=== PATIENT | female | born 1995 | race Caucasian/White ===

== ENCOUNTER 2018-12-09 11:14 | Inpatient (IN) | payer OTHER ==
[2018-12-09 11:58] VITALS: BMI 31.5
--- NOTE | 2018-12-09 16:10 | HP ---
COWS - Scale Resting Pulse: 1= [place] 81-100 Sweatin=Flushed/Facial Moisture Restless Observation: 1= Difficult to Sit Still Pupil Size: 1= Pupils >than Normal Bone or Joint Aches: 2= Severe Diffuse Aches Runny Nose/ Eye Tearin= Runny Nose/Eyes GI Upset > 30mins: 2= Nausea/Diarrhea Tremor Observation: 2= Slight Tremor Visible Yawning Observation: 1= 1-2x During Session Anxiety or Irritability: 2=Irritable/Anxious Goose Flesh Skin: 0=Smooth Skin COWS Score: 16 CIWA Score - Admission Criteria [facility]ASAS Guidelines: Admission for Medically Managed Detox: Requires at least one of the followin. CIWA greater than 12 2. Seizures within the past 24 hours 3. Delirium tremens within the past 24 hours 4. Hallucinations within the past 24 hours 5. Acute intervention needed for co occurring medical disorder 6. Acute intervention needed for co occurring psychiatric disorder 7. Severe withdrawal that cannot be handled at a lower level of care (continued vomiting, continued diarrhea, abnormal vital signs) requiring intravenous medication and/or fluids 8. Admission ROS [facility] - [facility] Chief Complaint: I am here to detox and to go to a residential facility Allergies/Adverse Reactions: Allergies Allergy/AdvReac Type Severity Reaction Status Date / Time No Known Allergies Allergy Verified 12/09/18 11:50 History of Present Illness: 23 year old female with no prior detox treatments presents for detox because she wants to be clean and get back her life. Patient denies h/o overdose. Exam Limitations: No Limitations - Ebola screening Have you traveled outside of the country in the last 21 days: No (N) Have you had contact with anyone from an Ebola affected area: No Have you been sick,other than usual withdrawal symptoms: No Do you have a fever: No - Review of Systems Constitutional: Chills EENT: reports: Nose Congestion Respiratory: reports: No Symptoms reported Cardiac: reports: No Symptoms Reported GI: reports: Diarrhea, Poor Fluid Intake, Abdominal cramping : reports: No Symptoms Reported Musculoskeletal: reports: Joint Pain, Muscle Pain Integumentary: reports: No Symptoms Reported Neuro: reports: Headache, Tremors Endocrine: reports: No Symptoms Reported Hematology: reports: Anemia Psychiatric: reports: Anxious, Depressed Other Systems: Reviewed and Negative Patient History - Patient Medical History Hx Anemia: Yes Hx Asthma: No Hx Chronic Obstructive Pulmonary Disease (COPD): No Hx Cancer: No Hx Cardiac Disorders: No Hx Congestive Heart Failure: No Hx Hypertension: No Hx Hypercholesterolemia: No Hx Pacemaker: No HX Cerebrovascular Accident: No Hx Seizures: No Hx Dementia: No Hx Diabetes: No Hx Gastrointestinal Disorders: No Hx Liver Disease: No Hx Genitourinary Disorders: No Hx Sexually Transmitted Disorders: No Hx Renal Disease (ESRD): No Hx Thyroid Disease: No Hx Human Immunodeficiency Virus (HIV): No Hx Hepatitis C: No Hx Depression: Yes Hx Suicide Attempt: No Hx Bipolar Disorder: No Hx Schizophrenia: No - Patient Surgical History Past Surgical History: No - PPD History Previous Implant?: Yes Documented Results: Negative w/o proof Implanted On Prior [facility] Admission?: No PPD to be Administered?: No - Reproductive History Patient is a Female of Child Bearing Age (11 -55 yrs old): Yes Last Menstrual Period: 11/17/18 LMP comment: Normal flow Patient : No - Smoking Cessation Smoking history: Never smoked Have you smoked in the past 12 months: No - Substance & Tx. History Hx Alcohol Use: No Hx Substance Use: Yes Substance Use Type: Opiates Hx Substance Use Treatment: No - Substances abused Oxycontin Substance route: Inhalation Frequency: Daily Amount used: 8-10 30mg tabs Age of first use: 20 Date of last use: 12/09/18 Family Disease History - Family Disease History Family History: Unremarkable Admission Physical Exam BHS - Vital Signs Vital Signs: Vital Signs - 24 hr 12/09/18 11:51 Temperature 97.6 F Pulse Rate 81 Respiratory 18 Rate Blood Pressure 114/68 - Physical General Appearance: Yes: No Apparent Distress, Nourished HEENTM: Yes: EOMI, Hearing grossly Normal, Normocephalic, KAYLA, Nasal Congestion Respiratory: Yes: Chest Non-Tender, Lungs Clear, Normal Breath Sounds Neck: Yes: No masses,lesions,Nodules, Supple Breast: Yes: Breast Exam Deferred Cardiology: Yes: Regular Rhythm, Regular Rate, S1, S2 Abdominal: Yes: Normal Bowel Sounds, Non Tender, Soft Genitourinary: Yes: Within Normal Limits Back: Yes: Normal Inspection Musculoskeletal: Yes: full range of Motion, Gait Steady, Pelvis Stable, Muscle Pain, Muscle weakness Extremities: Yes: Normal Inspection Neurological: Yes: community health consultant II-XII NML intact, Fully Oriented, Alert, Normal Mood/ Affect, Normal Response Integumentary: Yes: Normal Color Lymphatic: Yes: Within Normal Limits - Diagnostic (1) Opiate withdrawal Current Visit: Yes Status: Acute Cleared for Admission [facility] - Detox or Rehab [facility] Level of Care: Medically Managed Detox Regimen/Protocol: Methadone Claeared for Rehab Admission: No Breathalyzer - Breathalyzer Breathalyzer: 0 Urine Drug Screen - Test Device Lot number: [id number] Expiration date: 09/01/20 - Control Is test valid?: Yes - Results Drug screen NEGATIVE: No Urine drug screen results: THC-Marijuana, FEN-Fentanyl Inpatient Rehab Admission - Rehab Decision to Admit Inpatient rehab admission?: No
[2018-12-09] MEDS ORDERED: cloNIDine HCL 0.1 MG TABLET PO PRN (16:21)
[2018-12-09] MEDS ORDERED: ACETAMINOPHEN 325 MG TABLET (FP) PO PRN ×2 (16:21)
[2018-12-09] MEDS ORDERED: NALOXONE HCL 0.4 MG/ML VIAL IM PRN (16:21)
[2018-12-09] MEDS ORDERED: MENTHOL/PHENOL 1 EACH UD MM PRN (16:21)
[2018-12-09] MEDS ORDERED: IBUPROFEN 400 MG TABLET (FP) PO PRN (16:21)
[2018-12-09] MEDS ORDERED: METHADONE HCL 10 MG TABLET (FOR DETOX USE ONLY) PO ONE (16:21)
[2018-12-09] MEDS ORDERED: MAGNESIUM HYDROX 2400MG/30ML ORAL SUSPENSION 30 ML CUP PO PRN (16:21)
[2018-12-09] MEDS ORDERED: MELATONIN 5 MG TABLETS PO PRN (16:21)
[2018-12-09] MEDS ORDERED: MAGNESIUM CITRATE 300 ML BOTTLE PO PRN (16:21)
[2018-12-09] MEDS ORDERED: BISMUTH SUBSALICYLATE 524 MG/30 ML UD PO PRN (16:21)
[2018-12-09] MEDS ORDERED: METHOCARBAMOL 500 MG TABLET PO PRN (16:21)
[2018-12-09] MEDS ORDERED: MAG HYDROX/AL HYDROX/SIMETH 30 ML UNIT-DOSE CUP PO PRN (16:21)
[2018-12-09] MEDS: THIAMINE HCL 100 MG TABLET (FP) PO SCH (23:14)
[2018-12-10] MEDS ORDERED: METHADONE HCL 5 MG TABLET (FOR DETOX USE ONLY) PO ONE (10:00)
[2018-12-10 10:19] LABS: HEMATOCRIT 44.9 % (32.4-45.2); HEMOGLOBIN 14.7 GM/dL (10.7-15.3); MCH 29.6 pg (25.7-33.7); MCHC 32.8 g/dl (32.0-36.0); MEAN CELL VOLUME 90.4 fl (80-96); MEAN PLT VOLUME 10.1 fl (7.5-11.1); PLATELET COUNT 179 K/MM3 (134-434); RBC 4.97 M/mm3 (3.60-5.2); RDW 16.6 % (11.6-15.6)
[2018-12-10] MEDS: PRENATAL VITAMINS W/ FOLIC ACID TABLET (FP) PO SCH (10:27)
[2018-12-10 10:28] LABS: ALBUMIN 3.5 g/dl (3.4-5.0); BILIRUBIN,TOTAL 0.2 mg/dL (0.2-1); BLOOD UREA NITROGEN 12.7 mg/dL (7-18); CALCIUM 8.9 mg/dL (8.5-10.1); CREATININE 1.2 mg/dL (0.55-1.3); POTASSIUM 4.1 mmol/L (3.5-5.1); TOT PROT 6.5 g/dl (6.4-8.2)
--- NOTE | 2018-12-10 17:15 | EKG ---
Test Reason : Blood Pressure : / mmHG Vent. Rate : 070 BPM Atrial Rate : 070 BPM P-R Int : 152 ms QRS Dur : 074 ms QT Int : 372 ms P-R-T Axes : 067 072 054 degrees QTc Int : 401 ms NORMAL SINUS RHYTHM NORMAL ECG NO PREVIOUS ECGS AVAILABLE Confirmed by SAMI MANN MD ([id number]) on 12/10/2018 5:15:21 PM Referred By: MARCELINA PILLAI Confirmed By:SAMI MANN MD
--- NOTE | 2018-12-10 17:26 | PN ---
BHS COWS - Scale Resting Pulse: 1= [place] 81-100 Sweatin= Chills/Flushing Restless Observation: 3= Extraneous Movement Pupil Size: 0= Normal to Room Light Bone or Joint Aches: 2= Severe Diffuse Aches Runny Nose/ Eye Tearin= Runny Nose/Eyes GI Upset > 30mins: 2= Nausea/Diarrhea Tremor Observation of Outstretched Hands: 2= Slight Tremor Visible Yawning Observation: 0= None Anxiety or Irritability: 2=Irritable/Anxious Goose Flesh Skin: 0=Smooth Skin COWS Score: 15 BHS Progress Note (SOAP) Subjective: Feels ok Objective: 12/10/18 17:24 Last Vital Signs Temp Pulse Resp BP Pulse Ox 98.4 F 92 H 18 109/61 12/10/18 17:00 12/10/18 17:00 12/10/18 17:00 12/10/18 17:00 Laboratory Tests 12/10/18 12/10/18 12/10/18 08:00 08:00 08:00 WBC 6.0 RBC 4.97 Hgb 14.7 Hct 44.9 MCV 90.4 MCH 29.6 MCHC 32.8 RDW 16.6 H Plt Count 179 MPV 10.1 Sodium 142 Potassium 4.1 Chloride 109 H Carbon Dioxide 26 Anion Gap 7 L BUN 12.7 Creatinine 1.2 Est GFR (CKD-EPI)AfAm 74.29 Est GFR (CKD-EPI)NonAf 64.10 Random Glucose 139 H Calcium 8.9 Total Bilirubin 0.2 AST 50 H ALT 64 H Alkaline Phosphatase 116 Total Protein 6.5 Albumin 3.5 RPR Titer Nonreactive Labs reviewed: glucose 139, AST/ALT mildly elevated Assessment: 12/10/18 17:25 Withdrawal sxs Noted with hyperglycemia Plan: Continue detox Encouraged PO water intake Hyperglycemia: most likely r/t withdrawal, repeat fasting glucose, send A1c
[2018-12-10] MEDS: THIAMINE HCL 100 MG TABLET (FP) PO SCH (22:33)
[2018-12-11] MEDS ORDERED: METHADONE HCL 10 MG TABLET (FOR DETOX USE ONLY) PO ONE (10:00)
[2018-12-11] MEDS: PRENATAL VITAMINS W/ FOLIC ACID TABLET (FP) PO SCH (10:13)
[2018-12-11] MEDS ORDERED: CYCLOBENZAPRINE HCL 10 MG TABLET (FP) PO PRN (12:34)
--- NOTE | 2018-12-11 12:35 | PN ---
BHS COWS - Scale Resting Pulse: 0= [place] 80 or Below Sweatin= Chills/Flushing Restless Observation: 1= Difficult to Sit Still Pupil Size: 0= Normal to Room Light Bone or Joint Aches: 1= Mild Discomfort Runny Nose/ Eye Tearin= None GI Upset > 30mins: 0= None Tremor Observation of Outstretched Hands: 1= Tremor [place], Not Seen Yawning Observation: 0= None Anxiety or Irritability: 1=Feels Anxious/Irritable Goose Flesh Skin: 0=Smooth Skin COWS Score: 5 BHS Progress Note (SOAP) Subjective: restless legs anxiety Objective: 12/11/18 12:35 Vital Signs Temperature 97.9 F 12/11/18 09:45 Pulse Rate 86 12/11/18 09:45 Respiratory Rate 18 12/11/18 09:45 Blood Pressure 94/55 L 12/11/18 09:45 O2 Sat by Pulse Oximetry (%) aaox3 ambulating no acute distress Assessment: 12/11/18 12:35 mild withdrawal sx Plan: continue detox flexiril 10mg prn d/c in am
[2018-12-11] MEDS ORDERED: MELATONIN 5 MG TABLETS PO PRN (12:36)
[2018-12-11] MEDS: THIAMINE HCL 100 MG TABLET (FP) PO SCH (21:52)
[2018-12-12] MEDS ORDERED: METHADONE HCL 5 MG TABLET (FOR DETOX USE ONLY) PO ONE (06:00)
--- NOTE | 2018-12-12 09:30 | DS ---
[facility] Detox Discharge Summary Admission Date: 12/09/18 Discharge Date: 12/12/18 - History Present History: Opioid Dependence - Physical Exam Results Vital Signs: Vital Signs Temperature 99.1 F 12/12/18 07:04 Pulse Rate 84 12/12/18 07:04 Respiratory Rate 18 12/12/18 07:04 Blood Pressure 111/69 12/12/18 07:04 O2 Sat by Pulse Oximetry (%) Pertinent Admission Physical Exam Findings: pt arrived in withdrawals Laboratory Tests 12/10/18 12/10/18 12/10/18 08:00 08:00 08:00 WBC 6.0 RBC 4.97 Hgb 14.7 Hct 44.9 MCV 90.4 MCH 29.6 MCHC 32.8 RDW 16.6 H Plt Count 179 MPV 10.1 Sodium 142 Potassium 4.1 Chloride 109 H Carbon Dioxide 26 Anion Gap 7 L BUN 12.7 Creatinine 1.2 Est GFR (CKD-EPI)AfAm 74.29 Est GFR (CKD-EPI)NonAf 64.10 Random Glucose 139 H Fasting Glucose Hemoglobin A1c % Calcium 8.9 Total Bilirubin 0.2 AST 50 H ALT 64 H Alkaline Phosphatase 116 Total Protein 6.5 Albumin 3.5 RPR Titer Nonreactive 12/11/18 12/11/18 09:00 09:00 WBC RBC Hgb Hct MCV MCH MCHC RDW Plt Count MPV Sodium Potassium Chloride Carbon Dioxide Anion Gap BUN Creatinine Est GFR (CKD-EPI)AfAm Est GFR (CKD-EPI)NonAf Random Glucose Fasting Glucose 91 Hemoglobin A1c % 5.4 Calcium Total Bilirubin AST ALT Alkaline Phosphatase Total Protein Albumin RPR Titer today pt is aaox3 ambulating no acute distress no s/s of withdrawals - Treatment Hospital Course: Detox Protocol Followed, Detoxed Safely, Responded well, Discharged Condition Good, Rehab Referral Accepted Patient has Accepted a Rehab Referral to: pt declined rehab; referral provided - Medication Discharge Medications: Ambulatory Orders NK [No Known Home Medication] 12/09/18 - Diagnosis (1) Opiate withdrawal Current Visit: Yes Status: Chronic - AMA Did Patient Leave Against Medical Advice: No
[2018-12-12 09:52] VITALS: BP 110/60; PULSE 86; TEMP 98.8
== END 2018-12-12 09:24 | disposition home or self-care (01) | DRG 773 ==
LOC: YASAS 11:14 → Y6N 17:05
PROVIDERS: ADMIT Surgery; ATTEND Surgery
PROC: HZ2ZZZZ Detoxification Services for Substance Abuse Treatment (ICD-10-PCS; principal; 2018-12-09)
DX: F11.23 Opioid dependence with withdrawal (principal); R73.9 Hyperglycemia, unspecified; R94.5 Abnormal results of liver function studies
CPT/HCPCS: 36415; 80053; 82947; 83036; 85027; 86480; 86593; 93005; 93010

== ENCOUNTER 2020-06-15 19:34 | Inpatient (IN) | payer OTHER ==
[2020-06-15 21:08] VITALS: BMI 34.0
[2020-06-15] MEDS ORDERED: MAG HYDROX/AL HYDROX/SIMETH 30 ML UNIT-DOSE CUP PO PRN (21:30)
[2020-06-15] MEDS ORDERED: MAGNESIUM HYDROX 2400MG/30ML ORAL SUSPENSION 30 ML CUP PO PRN (21:30)
[2020-06-15] MEDS ORDERED: IBUPROFEN 400 MG TABLET (FP) PO PRN (21:30)
[2020-06-15] MEDS ORDERED: ONDANSETRON *ODT* 4 MG TABLET SL PRN (21:30)
[2020-06-15] MEDS ORDERED: METHADONE HCL 10 MG TABLET (FOR DETOX USE ONLY) PO ONE (21:30)
[2020-06-15] MEDS ORDERED: BISMUTH SUBSALICYLATE 524 MG/30 ML UD PO PRN (21:30)
[2020-06-15] MEDS ORDERED: ACETAMINOPHEN 325 MG TABLET (FP) PO PRN ×2 (21:30)
[2020-06-15] MEDS ORDERED: cloNIDine HCL 0.1 MG TABLET PO PRN (21:30)
[2020-06-15] MEDS ORDERED: MENTHOL/PHENOL 1 EACH UD MM PRN (21:30)
[2020-06-15] MEDS ORDERED: MAGNESIUM CITRATE 300 ML BOTTLE PO PRN (21:30)
[2020-06-16] MEDS: THIAMINE HCL 100 MG TABLET (FP) PO SCH ×2 (01:12→22:29)
[2020-06-16] MEDS: MELATONIN 5 MG TABLETS PO SCH ×2 (01:12→22:29)
[2020-06-16] MEDS ORDERED: METHADONE HCL 10 MG TABLET (FOR DETOX USE ONLY) ONE (09:40)
[2020-06-16] MEDS ORDERED: METHADONE HCL 5 MG TABLET (FOR DETOX USE ONLY) ONE (09:40)
[2020-06-16] MEDS ORDERED: METHADONE (DETOX) 20 MG, METHADONE (DETOX) 5 MG PO ONE (10:00)
[2020-06-16] MEDS: PRENATAL VITAMINS W/ FOLIC ACID TABLET (FP) PO SCH (10:33)
[2020-06-16 12:54] LABS: HEMATOCRIT 32.8 % (32.4-45.2); HEMOGLOBIN 10.9 GM/dL (10.7-15.3); MCH 27.7 pg (25.7-33.7); MCHC 33.3 g/dl (32.0-36.0); MEAN CELL VOLUME 83.2 fl (80-96); MEAN PLT VOLUME 8.4 fl (7.5-11.1); PLATELET COUNT 469 K/MM3 (134-434); RBC 3.94 M/mm3 (3.60-5.2); RDW 13.1 % (11.6-15.6); WHITE BLOOD COUNT 6.7 K/mm3 (4.0-10.0)
[2020-06-16 13:01] LABS: POTASSIUM 4.6 mmol/L (3.5-5.1)
[2020-06-16 13:11] LABS: ALBUMIN 2.9 g/dl (3.4-5.0); BLOOD UREA NITROGEN 12.2 mg/dL (7-18); CALCIUM 9.3 mg/dL (8.5-10.1)
[2020-06-16 13:14] LABS: CREATININE 0.7 mg/dL (0.55-1.3)
[2020-06-16 13:16] LABS: BILIRUBIN,TOTAL 0.8 mg/dL (0.2-1); TOT PROT 6.6 g/dl (6.4-8.2)
[2020-06-16] MEDS: METHOCARBAMOL 500 MG TABLET PO PRN (22:29)
[2020-06-17] MEDS ORDERED: METHADONE HCL 10 MG TABLET (FOR DETOX USE ONLY) PO ONE (10:00)
[2020-06-17] MEDS: METHOCARBAMOL 500 MG TABLET PO PRN ×2 (10:27→22:05)
[2020-06-17] MEDS: PRENATAL VITAMINS W/ FOLIC ACID TABLET (FP) PO SCH (10:27)
[2020-06-17] MEDS ORDERED: IBUPROFEN 400 MG TABLET (FP) PO PRN (11:42)
[2020-06-17] MEDS: MELATONIN 5 MG TABLETS PO SCH (22:05)
[2020-06-17] MEDS: THIAMINE HCL 100 MG TABLET (FP) PO SCH (22:05)
[2020-06-18] MEDS ORDERED: METHADONE HCL 10 MG TABLET (FOR DETOX USE ONLY) ONE (08:46)
[2020-06-18] MEDS ORDERED: METHADONE HCL 5 MG TABLET (FOR DETOX USE ONLY) ONE (08:46)
[2020-06-18] MEDS: PRENATAL VITAMINS W/ FOLIC ACID TABLET (FP) PO SCH (09:04)
[2020-06-18] MEDS: METHOCARBAMOL 500 MG TABLET PO PRN ×2 (09:05→17:50)
[2020-06-18] MEDS ORDERED: METHADONE (DETOX) 10 MG, METHADONE (DETOX) 5 MG PO ONE (10:00)
[2020-06-18] MEDS: THIAMINE HCL 100 MG TABLET (FP) PO SCH (22:11)
[2020-06-18] MEDS: MELATONIN 5 MG TABLETS PO SCH (22:11)
[2020-06-19 09:45] VITALS: BP 98/69; PULSE 77; TEMP 97.8
[2020-06-19] MEDS: PRENATAL VITAMINS W/ FOLIC ACID TABLET (FP) PO SCH (09:51)
[2020-06-19] MEDS ORDERED: METHADONE HCL 10 MG TABLET (FOR DETOX USE ONLY) PO ONE (10:00)
[2020-06-20] MEDS ORDERED: METHADONE HCL 5 MG TABLET (FOR DETOX USE ONLY) PO ONE (06:00)
== END 2020-06-19 11:22 | disposition home or self-care (01) | DRG 773 ==
LOC: YASAS 19:34 → Y3N 21:42
PROVIDERS: ADMIT Allergy & Immunology; ATTEND Allergy & Immunology
PROC: HZ2ZZZZ Detoxification Services for Substance Abuse Treatment (ICD-10-PCS; principal; 2020-06-15)
DX: F11.23 Opioid dependence with withdrawal (principal); Z87.59 Personal history of other complications of pregnancy, childbirth and the puerperium
CPT/HCPCS: 36415; 80053; 81025; 85027; 85032; 86780; 93005; 93010; C9803; U0003

== ENCOUNTER 2021-05-10 01:15 | Inpatient (IN) | payer BC, OTHER ==
[2021-05-10 01:18] VITALS: BMI 38.9
[2021-05-10] MEDS ORDERED: MAGNESIUM HYDROX 2400MG/30ML ORAL SUSPENSION 30 ML CUP PO PRN (01:18)
[2021-05-10] MEDS ORDERED: P-EPHED 60MG/TRIPROLIDI 2.5MG TABLET PO PRN (01:18)
[2021-05-10] MEDS ORDERED: NALOXONE HCL 0.4 MG/ML VIAL IM PRN (01:18)
[2021-05-10] MEDS ORDERED: MENTHOL/PHENOL 1 EACH UD MM PRN (01:18)
[2021-05-10] MEDS ORDERED: MAG HYDROX/AL HYDROX/SIMETH 30 ML UNIT-DOSE CUP PO PRN (01:18)
[2021-05-10] MEDS ORDERED: ACETAMINOPHEN 325 MG TABLET (FP) PO PRN ×2 (01:18)
[2021-05-10] MEDS ORDERED: MAGNESIUM CITRATE 300 ML BOTTLE PO PRN (01:18)
[2021-05-10] MEDS ORDERED: guaiFENesin 200 MG/10 ML 10 ML UNIT-DOSE CUPS PO PRN (01:18)
[2021-05-10] MEDS ORDERED: NALOXONE (NARCAN) HCL 4 MG/0.1 ML SPRAY NS PRN (01:18)
[2021-05-10] MEDS ORDERED: DICYCLOMINE HCL 10 MG CAPSULE PO PRN (01:18)
[2021-05-10] MEDS ORDERED: ONDANSETRON *ODT* 4 MG TABLET SL PRN (01:18)
[2021-05-10] MEDS ORDERED: BISMUTH SUBSALICYLATE 524 MG/30 ML PO PRN (01:18)
[2021-05-10] MEDS ORDERED: IBUPROFEN 400 MG TABLET (FP) PO PRN (01:18)
[2021-05-10] MEDS ORDERED: methaDONE HCL 10 MG TABLET (FOR DETOX USE ONLY) PO ONE (12:25)
[2021-05-10] MEDS ORDERED: cloNIDine HCL 0.1 MG TABLET PO PRN (12:25)
[2021-05-10] MEDS: PRENATAL VITAMINS W/ FOLIC ACID TABLET (FP) PO SCH (12:43)
[2021-05-10] MEDS: MELATONIN 5 MG TABLETS PO SCH (22:24)
[2021-05-10] MEDS: METHOCARBAMOL 500 MG TABLET PO PRN (22:24)
[2021-05-10] MEDS: THIAMINE HCL 100 MG TABLET (FP) PO SCH (22:24)
[2021-05-11] MEDS ORDERED: methaDONE HCL 10 MG TABLET (FOR DETOX USE ONLY) ONE (09:03)
[2021-05-11] MEDS: hydrOXYzine PAMOATE 25 MG CAPSULE (FP) PO PRN ×2 (10:05→22:29)
[2021-05-11] MEDS: PRENATAL VITAMINS W/ FOLIC ACID TABLET (FP) PO SCH (10:05)
[2021-05-11 10:50] LABS: BLOOD UREA NITROGEN 9.5 mg/dL (7-18)
[2021-05-11 10:52] LABS: ALBUMIN 3.7 g/dl (3.4-5.0); CALCIUM 9.4 mg/dL (8.5-10.1)
[2021-05-11 10:55] LABS: CREATININE 0.7 mg/dL (0.55-1.3)
[2021-05-11 10:56] LABS: BILIRUBIN,TOTAL 0.4 mg/dL (0.2-1)
[2021-05-11 11:04] LABS: HEMATOCRIT 36.8 % (32.4-45.2); HEMOGLOBIN 12.2 GM/dL (10.7-15.3); MCH 26.8 pg (25.7-33.7); MCHC 33.2 g/dl (32.0-36.0); MEAN CELL VOLUME 80.6 fl (80-96); MEAN PLT VOLUME 9.8 fl (7.5-11.1); PLATELET COUNT 256 10^3/uL (134-434); RBC 4.56 M/mm3 (3.60-5.2); RDW 13.7 % (11.6-15.6); WHITE BLOOD COUNT 3.8 K/mm3 (4.0-10.0)
[2021-05-11] MEDS: MELATONIN 5 MG TABLETS PO SCH (22:29)
[2021-05-11] MEDS: METHOCARBAMOL 500 MG TABLET PO PRN (22:29)
[2021-05-11] MEDS: THIAMINE HCL 100 MG TABLET (FP) PO SCH (22:30)
[2021-05-12] MEDS ORDERED: methaDONE HCL 10 MG TABLET (FOR DETOX USE ONLY) PO ONE (10:00)
[2021-05-12] MEDS: PRENATAL VITAMINS W/ FOLIC ACID TABLET (FP) PO SCH (10:18)
[2021-05-12] MEDS: METHOCARBAMOL 500 MG TABLET PO PRN ×2 (17:11→23:52)
[2021-05-12] MEDS: THIAMINE HCL 100 MG TABLET (FP) PO SCH (22:04)
[2021-05-12] MEDS: traZODone HCL 100 MG TABLET (FP) PO PRN (22:04)
[2021-05-12] MEDS: MELATONIN 5 MG TABLETS PO SCH (22:06)
[2021-05-13] MEDS ORDERED: methaDONE HCL 10 MG TABLET (FOR DETOX USE ONLY) ONE (09:25)
[2021-05-13] MEDS: PRENATAL VITAMINS W/ FOLIC ACID TABLET (FP) PO SCH (10:35)
[2021-05-13] MEDS: MELATONIN 5 MG TABLETS PO SCH (22:11)
[2021-05-13] MEDS: THIAMINE HCL 100 MG TABLET (FP) PO SCH (22:11)
[2021-05-13] MEDS: traZODone HCL 100 MG TABLET (FP) PO PRN (22:11)
[2021-05-13] MEDS: METHOCARBAMOL 500 MG TABLET PO PRN (22:11)
[2021-05-14] MEDS ORDERED: methaDONE HCL 10 MG TABLET (FOR DETOX USE ONLY) PO ONE (10:00)
[2021-05-14] MEDS: PRENATAL VITAMINS W/ FOLIC ACID TABLET (FP) PO SCH (10:08)
[2021-05-14] MEDS: THIAMINE HCL 100 MG TABLET (FP) PO SCH (22:09)
[2021-05-14] MEDS: MELATONIN 5 MG TABLETS PO SCH (22:09)
[2021-05-14] MEDS: traZODone HCL 100 MG TABLET (FP) PO PRN (22:09)
[2021-05-15 06:59] VITALS: TEMP 97.8
[2021-05-15 08:53] VITALS: BP 108/69; PULSE 71
[2021-05-16 14:11] LABS: SARS-CoV-2 NAA Not Detected (Not Detected)
== END 2021-05-15 09:23 | disposition home or self-care (01) | DRG 773 ==
LOC: YASAS 01:15 → Y3N 11:39
PROVIDERS: ADMIT Allergy & Immunology; ATTEND Allergy & Immunology
PROC: HZ2ZZZZ Detoxification Services for Substance Abuse Treatment (ICD-10-PCS; principal; 2021-05-10)
DX: F11.23 Opioid dependence with withdrawal (principal); F19.24 Other psychoactive substance dependence with psychoactive substance-induced mood disorder; Z62.810 Personal history of physical and sexual abuse in childhood; Z56.0 Unemployment, unspecified
CPT/HCPCS: 36415; 80053; 81025; 85027; 86780; 93005; 93010; C9803; J0735; U0003; U0005

== ENCOUNTER 2021-06-27 11:01 | Inpatient (IN) | payer OTHER ==
[2021-06-27 11:34] VITALS: BMI 36.8
[2021-06-27] MEDS ORDERED: BISMUTH SUBSALICYLATE 524 MG/30 ML PO PRN (11:51)
[2021-06-27] MEDS ORDERED: IBUPROFEN 400 MG TABLET (FP) PO PRN (11:51)
[2021-06-27] MEDS ORDERED: MENTHOL/PHENOL 1 EACH UD MM PRN (11:51)
[2021-06-27] MEDS ORDERED: LOPERAMIDE HCL 2 MG CAPSULE PO PRN (11:51)
[2021-06-27] MEDS ORDERED: clonazePAM 0.5 MG ODT TABLETS SL PRN (11:51)
[2021-06-27] MEDS ORDERED: MAG HYDROX/AL HYDROX/SIMETH 30 ML UNIT-DOSE CUP PO PRN (11:51)
[2021-06-27] MEDS ORDERED: cloNIDine HCL 0.1 MG TABLET PO PRN (11:51)
[2021-06-27] MEDS ORDERED: ONDANSETRON *ODT* 4 MG TABLET SL PRN (11:51)
[2021-06-27] MEDS ORDERED: MAGNESIUM CITRATE 300 ML BOTTLE PO PRN (11:51)
[2021-06-27] MEDS ORDERED: MAGNESIUM HYDROX 2400MG/30ML ORAL SUSPENSION 30 ML CUP PO PRN (11:51)
[2021-06-27] MEDS ORDERED: methaDONE HCL 10 MG TABLET (FOR DETOX USE ONLY) PO ONE (11:51)
[2021-06-27] MEDS ORDERED: ACETAMINOPHEN 325 MG TABLET (FP) PO PRN ×2 (11:51)
[2021-06-27] MEDS: METHOCARBAMOL 500 MG TABLET PO PRN (18:54)
[2021-06-27] MEDS: THIAMINE HCL 100 MG TABLET (FP) PO SCH (22:31)
[2021-06-27] MEDS: MELATONIN 5 MG TABLETS PO SCH (22:31)
[2021-06-28] MEDS ORDERED: methaDONE HCL 10 MG TABLET (FOR DETOX USE ONLY) ONE (09:32)
[2021-06-28] MEDS: PRENATAL VITAMINS W/ FOLIC ACID TABLET (FP) PO SCH (10:05)
[2021-06-28] MEDS: METHOCARBAMOL 500 MG TABLET PO PRN ×2 (10:05→22:10)
[2021-06-28 11:58] LABS: BLOOD UREA NITROGEN 11.6 mg/dL (7-18); CALCIUM 9.8 mg/dL (8.5-10.1)
[2021-06-28 12:01] LABS: CREATININE 0.8 mg/dL (0.55-1.3)
[2021-06-28 12:02] LABS: HEMATOCRIT 37.7 % (32.4-45.2); HEMOGLOBIN 12.7 GM/dL (10.7-15.3); MCH 27.1 pg (25.7-33.7); MCHC 33.8 g/dl (32.0-36.0); MEAN CELL VOLUME 80.3 fl (80-96); MEAN PLT VOLUME 8.8 fl (7.5-11.1); PLATELET COUNT 298 10^3/uL (134-434); RDW 14.1 % (11.6-15.6); WHITE BLOOD COUNT 6.6 K/mm3 (4.0-10.0)
[2021-06-28 12:03] LABS: BILIRUBIN,TOTAL 0.9 mg/dL (0.2-1); TOT PROT 7.8 g/dl (6.4-8.2)
[2021-06-28] MEDS: THIAMINE HCL 100 MG TABLET (FP) PO SCH (22:10)
[2021-06-28] MEDS: MELATONIN 5 MG TABLETS PO SCH (22:10)
[2021-06-29] MEDS ORDERED: methaDONE HCL 10 MG TABLET (FOR DETOX USE ONLY) PO ONE (10:00)
[2021-06-29] MEDS: PRENATAL VITAMINS W/ FOLIC ACID TABLET (FP) PO SCH (10:30)
[2021-06-29] MEDS: METHOCARBAMOL 500 MG TABLET PO PRN ×2 (10:30→22:10)
[2021-06-29] MEDS: THIAMINE HCL 100 MG TABLET (FP) PO SCH (22:04)
[2021-06-29] MEDS: MELATONIN 5 MG TABLETS PO SCH (22:04)
[2021-06-30] MEDS ORDERED: methaDONE HCL 10 MG TABLET (FOR DETOX USE ONLY) ONE (09:15)
[2021-06-30] MEDS: PRENATAL VITAMINS W/ FOLIC ACID TABLET (FP) PO SCH (10:30)
[2021-06-30] MEDS: METHOCARBAMOL 500 MG TABLET PO PRN ×2 (10:31→22:16)
[2021-06-30] MEDS ORDERED: DICYCLOMINE HCL 10 MG CAPSULE PO ONE (14:01)
[2021-06-30] MEDS: FAMOTIDINE 20 MG TABLET PO SCH (22:10)
[2021-06-30] MEDS: THIAMINE HCL 100 MG TABLET (FP) PO SCH (22:15)
[2021-06-30] MEDS: MELATONIN 5 MG TABLETS PO SCH (22:15)
[2021-07-01] MEDS ORDERED: methaDONE HCL 10 MG TABLET (FOR DETOX USE ONLY) PO ONE (10:00)
[2021-07-01] MEDS: METHOCARBAMOL 500 MG TABLET PO PRN ×2 (10:47→22:57)
[2021-07-01] MEDS: FAMOTIDINE 20 MG TABLET PO SCH ×2 (10:47→22:57)
[2021-07-01] MEDS: PRENATAL VITAMINS W/ FOLIC ACID TABLET (FP) PO SCH (10:47)
[2021-07-01] MEDS: MELATONIN 5 MG TABLETS PO SCH (22:57)
[2021-07-01] MEDS: THIAMINE HCL 100 MG TABLET (FP) PO SCH (22:57)
[2021-07-02 07:06] VITALS: BP 91/65; PULSE 78; TEMP 97.1
[2021-07-02] MEDS: PRENATAL VITAMINS W/ FOLIC ACID TABLET (FP) PO SCH (09:19)
[2021-07-02] MEDS: FAMOTIDINE 20 MG TABLET PO SCH (09:19)
== END 2021-07-02 09:28 | disposition home or self-care (01) | DRG 773 ==
LOC: YASAS 11:01 → Y6N 13:39
PROVIDERS: ADMIT Allergy & Immunology; ATTEND Allergy & Immunology
PROC: HZ2ZZZZ Detoxification Services for Substance Abuse Treatment (ICD-10-PCS; principal; 2021-06-27)
DX: F11.23 Opioid dependence with withdrawal (principal)
CPT/HCPCS: 36415; 80053; 81025; 85027; 86780; 87811; 90853; C9803-CS; J0735; U0003; U0005

== ENCOUNTER 2021-09-20 23:53 | Inpatient (IN) | payer OTHER ==
[2021-09-21] MEDS ORDERED: DICYCLOMINE HCL 10 MG CAPSULE PO PRN (00:18)
[2021-09-21] MEDS ORDERED: MAGNESIUM CITRATE 300 ML BOTTLE PO PRN (00:18)
[2021-09-21] MEDS ORDERED: MAGNESIUM HYDROX 2400MG/30ML ORAL SUSPENSION 30 ML CUP PO PRN (00:18)
[2021-09-21] MEDS ORDERED: ACETAMINOPHEN 325 MG TABLET (FP) PO PRN ×2 (00:18)
[2021-09-21] MEDS ORDERED: BISMUTH SUBSALICYLATE 524 MG/30 ML PO PRN (00:18)
[2021-09-21] MEDS ORDERED: MAG HYDROX/AL HYDROX/SIMETH 30 ML UNIT-DOSE CUP PO PRN (00:18)
[2021-09-21] MEDS ORDERED: IBUPROFEN 600 MG TABLET (FP) PO PRN (00:18)
[2021-09-21] MEDS ORDERED: BENZOCAINE/MENTHOL (CHLORASEPTIC ) LOZENGE MM PRN (00:18)
[2021-09-21] MEDS ORDERED: LOPERAMIDE HCL 2 MG CAPSULE PO PRN (00:18)
[2021-09-21] MEDS ORDERED: methaDONE HCL 10 MG TABLET (FOR DETOX USE ONLY) PO ONE ×2 (00:18→11:00)
[2021-09-21] MEDS ORDERED: IBUPROFEN 400 MG TABLET (FP) PO PRN (00:18)
[2021-09-21] MEDS ORDERED: ONDANSETRON *ODT* 4 MG TABLET SL PRN (00:18)
[2021-09-21 00:21] VITALS: BMI 36.6
[2021-09-21] MEDS: hydrOXYzine PAMOATE 25 MG CAPSULE (FP) PO SCH ×5 (06:18→22:32)
[2021-09-21] MEDS: PRENATAL VITAMINS W/ FOLIC ACID TABLET (FP) PO SCH (10:26)
[2021-09-21] MEDS: METHOCARBAMOL 500 MG TABLET PO PRN ×2 (10:27→17:22)
[2021-09-21 10:35] LABS: ALBUMIN 3.4 g/dl (3.4-5.0); CALCIUM 9.4 mg/dL (8.5-10.1)
[2021-09-21 10:36] LABS: BLOOD UREA NITROGEN 12.1 mg/dL (7-18)
[2021-09-21 10:52] LABS: CREATININE 0.7 mg/dL (0.55-1.3)
[2021-09-21 10:53] LABS: TOT PROT 6.8 g/dl (6.4-8.2)
[2021-09-21 10:54] LABS: BILIRUBIN,TOTAL 0.5 mg/dL (0.2-1)
[2021-09-21 11:01] LABS: HEMATOCRIT 36.2 % (32.4-45.2); HEMOGLOBIN 11.9 GM/dL (10.7-15.3); MCH 26.6 pg (25.7-33.7); MEAN CELL VOLUME 80.6 fl (80-96); MEAN PLT VOLUME 9.3 fl (7.5-11.1); PLATELET COUNT 273 10^3/uL (134-434); RBC 4.49 M/mm3 (3.60-5.2); RDW 14.8 % (11.6-15.6); WHITE BLOOD COUNT 7.1 K/mm3 (4.0-10.0)
[2021-09-21] MEDS: cloNIDine HCL 0.1 MG TABLET PO PRN ×2 (17:21→22:33)
[2021-09-21] MEDS: THIAMINE HCL 100 MG TABLET (FP) PO SCH (22:32)
[2021-09-21] MEDS: MELATONIN 5 MG TABLETS PO SCH (22:32)
[2021-09-22] MEDS: hydrOXYzine PAMOATE 25 MG CAPSULE (FP) PO SCH ×5 (05:51→22:02)
[2021-09-22] MEDS ORDERED: methaDONE HCL 10 MG TABLET (FOR DETOX USE ONLY) ONE (09:42)
[2021-09-22] MEDS: PRENATAL VITAMINS W/ FOLIC ACID TABLET (FP) PO SCH (09:51)
[2021-09-22] MEDS: METHOCARBAMOL 500 MG TABLET PO PRN ×2 (09:52→22:04)
[2021-09-22] MEDS: MELATONIN 5 MG TABLETS PO SCH (22:02)
[2021-09-22] MEDS: THIAMINE HCL 100 MG TABLET (FP) PO SCH (22:02)
[2021-09-22] MEDS: cloNIDine HCL 0.1 MG TABLET PO PRN (22:02)
[2021-09-23] MEDS: hydrOXYzine PAMOATE 25 MG CAPSULE (FP) PO SCH ×5 (05:49→22:23)
[2021-09-23] MEDS: METHOCARBAMOL 500 MG TABLET PO PRN (09:48)
[2021-09-23] MEDS: PRENATAL VITAMINS W/ FOLIC ACID TABLET (FP) PO SCH (09:49)
[2021-09-23] MEDS ORDERED: methaDONE HCL 10 MG TABLET (FOR DETOX USE ONLY) PO ONE (10:00)
[2021-09-23] MEDS: cloNIDine HCL 0.1 MG TABLET PO PRN (17:55)
[2021-09-23] MEDS: MELATONIN 5 MG TABLETS PO SCH (22:23)
[2021-09-23] MEDS: THIAMINE HCL 100 MG TABLET (FP) PO SCH (22:23)
[2021-09-24] MEDS: hydrOXYzine PAMOATE 25 MG CAPSULE (FP) PO SCH ×5 (05:40→22:28)
[2021-09-24] MEDS ORDERED: methaDONE HCL 10 MG TABLET (FOR DETOX USE ONLY) ONE (09:39)
[2021-09-24] MEDS: METHOCARBAMOL 500 MG TABLET PO PRN ×2 (10:21→18:11)
[2021-09-24] MEDS: PRENATAL VITAMINS W/ FOLIC ACID TABLET (FP) PO SCH (10:21)
[2021-09-24] MEDS: THIAMINE HCL 100 MG TABLET (FP) PO SCH (22:28)
[2021-09-24] MEDS: MELATONIN 5 MG TABLETS PO SCH (22:28)
[2021-09-25] MEDS: hydrOXYzine PAMOATE 25 MG CAPSULE (FP) PO SCH ×3 (06:15→13:48)
[2021-09-25 09:08] VITALS: BP 106/74; PULSE 87; TEMP 96.9
[2021-09-25] MEDS ORDERED: methaDONE HCL 10 MG TABLET (FOR DETOX USE ONLY) PO ONE (10:00)
[2021-09-25] MEDS: METHOCARBAMOL 500 MG TABLET PO PRN (10:17)
[2021-09-25] MEDS: PRENATAL VITAMINS W/ FOLIC ACID TABLET (FP) PO SCH (10:17)
== END 2021-09-25 14:07 | disposition home or self-care (01) | DRG 773 ==
LOC: YASAS 23:53 → Y6N 09-21 00:02
PROVIDERS: ADMIT Allergy & Immunology; ATTEND Surgery
PROC: HZ2ZZZZ Detoxification Services for Substance Abuse Treatment (ICD-10-PCS; principal; 2021-09-21)
DX: F11.23 Opioid dependence with withdrawal (principal); F19.24 Other psychoactive substance dependence with psychoactive substance-induced mood disorder
CPT/HCPCS: 36415; 80053; 85027; 86780; C9803-CS; J0735; U0003; U0005